=== PATIENT | female | born 1960 | race Caucasian/White ===

== ENCOUNTER 2022-03-29 06:47 | Inpatient (IN) | payer MEDICARE, MEDICAID ==
[~2022-03-29] VITALS: Ht 167.6 cm; Wt 102.5 kg
[2022-03-29 08:56] LABS: CHLORIDE 95 mEq/L (98-107)
[2022-03-29 08:59] LABS: BASOPHILS % 0.4 % (0.0-2.0); EOSINOPHILS % 0.6 % (0.0-5.0); HEMOGLOBIN. 11.9 g/dL (12.0-16.0); LYMPHOCYTES % 7.3 % (20.0-50.0); MEAN CORPUSCULAR HEMOGLOBIN 29.5 pg (28.0-32.0); MEAN CORPUSCULAR VOLUME 86.7 fL (81.0-99.0); MEAN PLATELET VOLUME 8.4 fl (7.4-10.4); MONOCYTES % 6.9 % (2.0-8.0); NEUTROPHILS % 84.8 % (40.0-76.0); PLATELET 549 x1000/uL (130-400); PROTHROMBIN TIME 11.2 sec (9.6-11.0); RED BLOOD CELL COUNT 4.04 mill/uL (4.2-5.4); RED CELL DISTRIBUTION WIDTH 14.7 % (11.6-14.6)
[2022-03-29 09:42] LABS: CHLORIDE 95 mEq/L (98-107)
[2022-03-29] MEDS ORDERED: SODIUM CHLORIDE 0.9% 1,000 ML IV ONE (10:30)
[2022-03-29 11:23] LABS: BG BASE EXCESS 14.9 mmol/L (-2.0-2.0); BG CARBOXYHEMOGLOBIN 2.4 % (0.5-1.5); BG DEOXYHEMOGLOBIN 3.6 % (0.0-5.0); BG FRACTION INSPIRED OXYGEN 21; BG HCO3 ACT 38.3 mmol/L (22.0-26.0); BG METHEMOGLOBIN 0.3 % (0.0-1.5); BG OXYGEN SATURATION 96.3 % (92.0-98.5); BG OXYHEMOGLOBIN 93.7 % (94.0-97.0); BG PCO2 41.6 mmHg (35.0-45.0); BG PH 7.582 (7.350-7.450); BG PO2 69.1 mmHg (75.0-100.0); BG SAMPLE SITE RIGHT RADIAL; BG TOTAL HEMOGLOBIN 13.4 g/dL (12.0-18.0); BG VENT MODE ROOM AIR
[2022-03-29 12:50] LABS: CLARITY URINE CLEAR (CLEAR); COLOR URINE YELLOW (YELLOW); KETONES URINE NEGATIVE (NEGATIVE); LEUKOCYTE ESTERASE URINE 2+ (NEGATIVE); NITRITE URINE NEGATIVE (NEGATIVE); OCCULT BLOOD URINE NEGATIVE (NEGATIVE); PH URINE >=9.0 (4.5-8.0); PROTEIN URINE 1+ (NEGATIVE); SPECIFIC GRAVITY URINE 1.009 (1.005-1.030); UROBILINOGEN URINE 0.2 E.U./dL (0.2-1.0)
[2022-03-29] MEDS: PANTOPRAZOLE SODIUM 40 MG/VIAL IV SCH ×2 (14:21→14:36)
[2022-03-29] MEDS ORDERED: GUAIFENESIN 200MG/10ML SUGAR FREE UDC PO PRN (14:45)
[2022-03-29] MEDS ORDERED: DEXTROSE 50% WATER 50ML SYRINGE IV PRN (14:45)
[2022-03-29] MEDS ORDERED: DOCUSATE SODIUM 100MG CAPSULE PO PRN (14:45)
[2022-03-29] MEDS ORDERED: NITROGLYCERIN 0.4MG TABLET SL SL PRN (14:45)
[2022-03-29] MEDS ORDERED: MAGNESIUM/ALUMINUM HYDROXIDE/SIMETHICONE 30ML UDC PO PRN (14:45)
[2022-03-29] MEDS ORDERED: ONDANSETRON HCL 4MG/2ML INJ IV PRN (14:45)
[2022-03-29] MEDS ORDERED: CLONIDINE 0.1MG TABLET PO PRN (14:45)
[2022-03-29] MEDS ORDERED: IPRATROPIUM/ALBUTEROL 0.5-3(2.5)MG/3ML NEB HHN PRN (14:45)
[2022-03-29] MEDS ORDERED: ZOLPIDEM TARTRATE 5MG TABLET PO PRN (14:45)
[2022-03-29] MEDS ORDERED: ACETAMINOPHEN 325MG TABLET PO PRN ×2 (14:45)
[2022-03-29] MEDS ORDERED: ALBUTEROL (0.083%) 2.5MG/3ML NEB HHN PRN (15:00)
[2022-03-29] MEDS ORDERED: IPRATROPIUM BROMIDE (0.02%) 0.5MG/2.5ML NEB HHN PRN (15:00)
[2022-03-29 15:50] LABS: VITAMIN B12 SERUM 843 pg/mL (211-911)
[2022-03-29] MEDS ORDERED: SUCRALFATE 1 G/10 ML UDC PO SCH (17:00)
[2022-03-29 17:18] LABS: T4 FREE 1.68 ng/dL (0.76-1.46)
[2022-03-29] MEDS: BLOOD SUGAR DIAGNOSTIC STRIP TEST SCH ×2 (17:32→21:48)
[2022-03-29] MEDS ORDERED: PANTOPRAZOLE 80 MG in SODIUM CHLORIDE 0.9% 100 ML IV SCH (18:00)
[2022-03-29] MEDS: PANTOPRAZOLE 80 MG in SODIUM CHLORIDE 0.9% 100 ML IV SCH (18:20)
[2022-03-29] MEDS: INSULIN LISPRO 100 UNITS/ML SUBCUT SCH ×2 (18:20→21:00)
[2022-03-29] MEDS ORDERED: CEFTRIAXONE 1 G PREMIX 50 ML IV NR (19:15)
[2022-03-29] MEDS ORDERED: CEFTRIAXONE 1,000 MG in DEXTROSE 5% WATER 50 ML IV NR (22:45)
[2022-03-29 23:42] VITALS: BP 122/68
[2022-03-30 01:21] LABS: CREATINE KINASE 31 IU/L (26-192); CREATINE KINASE MB FRACTION < 1.0 ng/mL (0.5-3.6)
[2022-03-30 04:00] VITALS: BP 100/70
[2022-03-30 06:35] LABS: INR 1.1; PROTHROMBIN TIME 11.5 sec (9.6-11.0)
[2022-03-30 06:36] LABS: BASOPHILS % 0.7 % (0.0-2.0); HEMATOCRIT. 29.1 % (36.0-48.0); HEMOGLOBIN. 9.8 g/dL (12.0-16.0); LYMPHOCYTES % 14.5 % (20.0-50.0); MEAN CORPUSCULAR HEMOGLOBIN 30.1 pg (28.0-32.0); MEAN CORPUSCULAR VOLUME 89.4 fL (81.0-99.0); MEAN PLATELET VOLUME 7.9 fl (7.4-10.4); MONOCYTES % 8.7 % (2.0-8.0); NEUTROPHILS % 73.1 % (40.0-76.0); PLATELET 395 x1000/uL (130-400); RED BLOOD CELL COUNT 3.25 mill/uL (4.2-5.4); RED CELL DISTRIBUTION WIDTH 14.7 % (11.6-14.6)
[2022-03-30] MEDS: INSULIN LISPRO 100 UNITS/ML SUBCUT SCH ×4 (06:45→21:00)
[2022-03-30] MEDS: BLOOD SUGAR DIAGNOSTIC STRIP TEST SCH ×4 (06:45→21:03)
[2022-03-30 07:33] LABS: CHLORIDE 107 mEq/L (98-107)
[2022-03-30 07:44] LABS: CREATINE KINASE 33 IU/L (26-192); CREATINE KINASE MB FRACTION < 1.0 ng/mL (0.5-3.6); PHOSPHORUS 3.9 mg/dL (2.5-4.9)
[2022-03-30 08:00] VITALS: BP 106/67
[2022-03-30] MEDS ORDERED: PANTOPRAZOLE SODIUM 40 MG/VIAL IV SCH (09:00)
[2022-03-30 12:00] VITALS: BP 123/79
[2022-03-30 14:04] LABS: *AMPHETAMINES SCREEN URINE NEGATIVE (NEGATIVE); *BARBITURATES SCREEN URINE NEGATIVE (NEGATIVE); *BENZODIAZEPINES SCREEN URINE NEGATIVE (NEGATIVE); *COCAINE SCREEN URINE NEGATIVE (NEGATIVE); CANNABINOID URINE SCREEN NEGATIVE (NEGATIVE); METHADONE URINE SCREEN NEGATIVE (NEGATIVE); OPIATES URINE SCREEN NEGATIVE (NEGATIVE); PHENCYCLIDINE URINE SCREEN NEGATIVE (NEGATIVE)
[2022-03-30] MEDS: SODIUM CHLORIDE 0.9% 1,000 ML IV SCH ×2 (15:02→20:56)
[2022-03-30] MEDS: PANTOPRAZOLE 80 MG in SODIUM CHLORIDE 0.9% 100 ML IV SCH ×2 (15:34→18:31)
[2022-03-30 16:00] VITALS: BP 118/71
[2022-03-30] MEDS ORDERED: CEFTRIAXONE 1,000 MG in DEXTROSE 5% WATER 50 ML IV SCH (18:00)
[2022-03-30 20:00] VITALS: BP 121/77
[2022-03-30] MEDS: CEFTRIAXONE 1,000 MG in DEXTROSE 5% WATER 50 ML IV SCH (23:00)
[2022-03-31] VITALS: BP 130/80
[2022-03-31] MEDS ORDERED: METOCLOPRAMIDE HCL 10MG/2ML VIAL IV NR (00:45)
[2022-03-31] MEDS ORDERED: DEXT 5%/0.45% NACL 1000ML 1,000 ML IV ONE (00:45)
[2022-03-31 01:51] LABS: HEMATOCRIT 33.6 % (36.0-48.0); HEMOGLOBIN 10.6 g/dL (12.0-16.0)
[2022-03-31 04:00] VITALS: BP 138/77
[2022-03-31] MEDS: METOCLOPRAMIDE HCL 10MG/2ML VIAL IV SCH ×4 (05:54→23:13)
[2022-03-31] MEDS: PANTOPRAZOLE SODIUM 40 MG/VIAL IV SCH ×2 (05:54→18:12)
[2022-03-31] MEDS: BLOOD SUGAR DIAGNOSTIC STRIP TEST SCH ×4 (06:05→19:59)
[2022-03-31] MEDS: INSULIN LISPRO 100 UNITS/ML SUBCUT SCH ×4 (06:05→20:28)
[2022-03-31 06:41] LABS: CHLORIDE 104 mEq/L (98-107)
[2022-03-31 06:51] LABS: AMYLASE 18 IU/L (25-115); CREATINE KINASE 30 IU/L (26-192); PHOSPHORUS 1.6 mg/dL (2.5-4.9)
[2022-03-31 07:03] LABS: HEMATOCRIT. 32.6 % (36.0-48.0); HEMOGLOBIN. 10.7 g/dL (12.0-16.0); MEAN CORPUSCULAR HEMOGLOBIN 29.8 pg (28.0-32.0); MEAN CORPUSCULAR VOLUME 90.9 fL (81.0-99.0); PLATELET 469 x1000/uL (130-400); RED BLOOD CELL COUNT 3.58 mill/uL (4.2-5.4); RED CELL DISTRIBUTION WIDTH 14.7 % (11.6-14.6)
[2022-03-31 08:00] VITALS: BP 106/53
[2022-03-31 12:00] VITALS: BP 97/27
[2022-03-31] MEDS ORDERED: SODIUM PHOS,M-BASIC-D-BASIC 30 MM in DEXT 5% WATER 500 ML IV ONE (12:00)
[2022-03-31] MEDS ORDERED: LORAZEPAM 0.5MG TABLET PO PRN (14:30)
[2022-03-31] MEDS: OLANZAPINE 2.5MG TABLET PO SCH ×2 (14:49→18:12)
[2022-03-31 16:00] VITALS: BP 91/54
[2022-03-31 18:23] LABS: PHOSPHORUS 4.9 mg/dL (2.5-4.9)
[2022-03-31 19:43] LABS: PLATELET ESTIMATE INCREASED
[2022-03-31 20:00] VITALS: BP 98/69
[2022-03-31] MEDS ORDERED: TRAZODONE HCL 50MG TABLET PO PRN (21:00)
[2022-03-31] MEDS: CEFTRIAXONE 1,000 MG in DEXTROSE 5% WATER 50 ML IV SCH (23:13)
[2022-04-01 03:43] LABS: BASOPHILS % 0.5 % (0.0-2.0); EOSINOPHILS % 6.9 % (0.0-5.0); HEMATOCRIT. 23.3 % (36.0-48.0); HEMOGLOBIN. 7.7 g/dL (12.0-16.0); MEAN CORPUSCULAR HEMOGLOBIN 29.3 pg (28.0-32.0); MEAN CORPUSCULAR VOLUME 88.8 fL (81.0-99.0); MEAN PLATELET VOLUME 8.5 fl (7.4-10.4); MONOCYTES % 7.6 % (2.0-8.0); PLATELET 363 x1000/uL (130-400); RED BLOOD CELL COUNT 2.62 mill/uL (4.2-5.4); RED CELL DISTRIBUTION WIDTH 14.7 % (11.6-14.6)
[2022-04-01 03:49] LABS: INR 1.1; PROTHROMBIN TIME 11.8 sec (9.6-11.0)
[2022-04-01 03:54] LABS: PHOSPHORUS 5.9 mg/dL (2.5-4.9)
[2022-04-01 04:00] VITALS: BP 108/66
[2022-04-01] MEDS: INSULIN LISPRO 100 UNITS/ML SUBCUT SCH ×4 (05:55→21:00)
[2022-04-01] MEDS: BLOOD SUGAR DIAGNOSTIC STRIP TEST SCH ×4 (05:55→21:38)
[2022-04-01] MEDS: PANTOPRAZOLE SODIUM 40 MG/VIAL IV SCH ×2 (05:55→17:45)
[2022-04-01] MEDS: METOCLOPRAMIDE HCL 10MG/2ML VIAL IV SCH ×4 (05:55→18:06)
[2022-04-01 08:00] VITALS: BP 103/49
[2022-04-01] MEDS: OLANZAPINE 2.5MG TABLET PO SCH ×2 (09:00→17:45)
[2022-04-01 12:00] VITALS: BP 110/56
[2022-04-01] MEDS ORDERED: MIDAZOLAM HCL 2 MG/2 ML VIAL ONE (12:26)
[2022-04-01] MEDS ORDERED: LIDOCAINE HCL 1% 10 MG/ML 10ML VIAL ONE (12:27)
[2022-04-01] MEDS ORDERED: PROPOFOL 200MG/20ML VIAL IV ONE (12:27)
[2022-04-01] MEDS ORDERED: DEXAMETHASONE 4MG/ML 1ML VIAL ONE (12:40)
[2022-04-01] MEDS ORDERED: ONDANSETRON HCL 4MG/2ML INJ ONE (12:40)
[2022-04-01] MEDS: SUCRALFATE 1 G/10 ML UDC PO SCH ×3 (13:00→21:38)
[2022-04-01 16:00] VITALS: BP 111/61
[2022-04-01 20:06] VITALS: BP 116/59
[2022-04-01] MEDS: CEFTRIAXONE 1,000 MG in DEXTROSE 5% WATER 50 ML IV SCH (23:29)
[2022-04-02] VITALS: BP 110/61
[2022-04-02 04:00] VITALS: BP 100/50
[2022-04-02 05:28] LABS: BASOPHILS % 0.2 % (0.0-2.0); EOSINOPHILS % 4.3 % (0.0-5.0); HEMATOCRIT. 24.1 % (36.0-48.0); MEAN CORPUSCULAR HEMOGLOBIN 29.5 pg (28.0-32.0); MEAN CORPUSCULAR VOLUME 89.3 fL (81.0-99.0); MEAN PLATELET VOLUME 8.5 fl (7.4-10.4); NEUTROPHILS % 70.5 % (40.0-76.0); PLATELET 386 x1000/uL (130-400); RED CELL DISTRIBUTION WIDTH 14.5 % (11.6-14.6)
[2022-04-02] MEDS: PANTOPRAZOLE SODIUM 40 MG/VIAL IV SCH (05:28)
[2022-04-02 06:02] LABS: PHOSPHORUS 3.4 mg/dL (2.5-4.9)
[2022-04-02] MEDS: METOCLOPRAMIDE HCL 10MG/2ML VIAL IV SCH ×2 (06:22→12:34)
[2022-04-02] MEDS: INSULIN LISPRO 100 UNITS/ML SUBCUT SCH ×2 (06:27→12:16)
[2022-04-02] MEDS: BLOOD SUGAR DIAGNOSTIC STRIP TEST SCH ×2 (06:27→12:16)
[2022-04-02 08:00] VITALS: BP 127/55
[2022-04-02] MEDS: OLANZAPINE 2.5MG TABLET PO SCH (08:27)
[2022-04-02] MEDS: SUCRALFATE 1 G/10 ML UDC PO SCH ×2 (08:27→12:34)
[2022-04-02 09:49] VITALS: BP 109/60
[2022-04-02] MEDS ORDERED: POTASSIUM CHLORIDE 20MEQ TABLET SR PO NR (10:00)
[2022-04-02 12:00] VITALS: BP 109/60
[2022-04-02 16:00] VITALS: BP 121/73
== END 2022-04-02 17:00 | DRG 871 ==
LOC: ER 06:47 → EDBD 06:47 → SUPCPDRO 14:23 → 8WST 23:52
PROVIDERS: ADMIT Internal Medicine; ATTEND Internal Medicine
PROC: 0DB78ZX Excision of Stomach, Pylorus, Via Natural or Artificial Opening Endoscopic, Diagnostic (ICD-10-PCS; principal; 2022-04-01)
DX: A41.9 Sepsis, unspecified organism (principal); K26.4 Chronic or unspecified duodenal ulcer with hemorrhage; N17.0 Acute kidney failure with tubular necrosis; K29.71 Gastritis, unspecified, with bleeding; N39.0 Urinary tract infection, site not specified; E87.3 Alkalosis; E44.1 Mild protein-calorie malnutrition; K31.1 Adult hypertrophic pyloric stenosis; E66.01 Morbid (severe) obesity due to excess calories; E83.52 Hypercalcemia; I11.0 Hypertensive heart disease with heart failure; F31.9 Bipolar disorder, unspecified; I50.9 Heart failure, unspecified; E03.9 Hypothyroidism, unspecified; K31.89 Other diseases of stomach and duodenum; Z20.822 Contact with and (suspected) exposure to COVID-19; F25.9 Schizoaffective disorder, unspecified; J44.9 Chronic obstructive pulmonary disease, unspecified; K57.30 Diverticulosis of large intestine without perforation or abscess without bleeding; E11.9 Type 2 diabetes mellitus without complications; E05.90 Thyrotoxicosis, unspecified without thyrotoxic crisis or storm; F41.9 Anxiety disorder, unspecified; Z87.442 Personal history of urinary calculi; Z90.49 Acquired absence of other specified parts of digestive tract; Z68.36 Body mass index [BMI] 36.0-36.9, adult; Z82.49 Family history of ischemic heart disease and other diseases of the circulatory system
CPT/HCPCS: 36415; 36600; 71045; 74176; 76770; 80048; 80053; 80061; 80305; 81003; 82150; 82375; 82550; 82553; 82607; 82728; 82746; 82805; 82962; 83036; 83540; 83550; 83735; 83880; 84100; 84439; 84443; 84484; 85014; 85018; 85025; 85044; 86850; 86900; 87077; 87186; 87426; 88305; 93306; 93970; 99285; C9113; C9803; J0696; J1100; J1815; J2250; J2405; J2704; J2765; J3490; J7030; J7050; J7060; A4315